=== PATIENT | female | born 1990 | race African-American/Black ===

== ENCOUNTER 2022-07-28 15:22 | Emergency (ER) | payer BC ==
[~2022-07-28 15:22] MED LIST: Iopamidol 370 76% 100 ML VIAL ONE
[2022-07-28] MEDS ORDERED: Ketorolac Tromethamine 30 MG/ML VIAL ONE (16:35)
[2022-07-28 16:53] LABS: Hemoglobin 11.2 g/dL (12.0-16.0); Mean Corpuscular HGB CONC 31.5 g/dL (32.0-36.0); Mean Corpuscular Hemoglobin 28.1 pg (27.0-31.0); Platelet Count 459 10x3/uL (130-400); RBC Distribution Width 14.7 % (11.5-14.5)
[2022-07-28 16:54] LABS: MDiff Complete? YES; Manual Diff?? YES
[2022-07-28 16:58] LABS: CK (CPK) 487 U/L (29-168); CRP (Inflammatory) Less than 0.50 mg/dL (= or < 0.5)
[2022-07-28 17:01] LABS: ALT (SGPT) 18 U/L (8-55); AST (SGOT) 31 U/L (5-34); Albumin 3.9 g/dL (3.5-5.0); Alkaline Phosphatase 56 U/L (40-110); Anion Gap 14 mmol/L (10-20); BUN (Urea Nitrogen) 8 mg/dL (7.0-18.7); Bilirubin, Total 0.3 mg/dL (0.2-1.2); Calc. Creatinine Clearance 0 mL/min (70-130); Carbon Dioxide 24 mmol/L (22-29); Chloride 104 mmol/L (98-107); Estimated GFR 93; Glucose 86 mg/dL (70-105); Lipase 20 U/L (8-78); Potassium 3.7 mmol/L (3.5-5.1); Protein, Total 7.9 g/dL (6.0-8.3); Sodium 138 mmol/L (136-145)
[2022-07-28 17:07] LABS: Eosinophils 3 % (0-10); Lymphocytes 43 % (21-51); Monocytes 3 % (0-10); Neutrophil 44 % (42-75); Reactive Lymphocytes 6 % (0-10)
[2022-07-28 17:08] LABS: Stomatocytes SLIGHT = 2-5 cells (100X) (0-1/hpf)
[2022-07-28 17:09] LABS: Target Cells SLIGHT = 2-5 cells (100X) (0-1/hpf)
[2022-07-28 17:10] LABS: Large Platelets SLIGHT
[2022-07-28 17:11] LABS: Anisocytosis SLIGHT = 6-15 cells (100X) (0-5/hpf); Platelet Morphology Comment Appears Increased
[2022-07-28 17:13] LABS: BHCG - Serum Negative (NEGATIVE); Pregs Control Bar Appear? YES (CONTROL BAR)
[2022-07-28 17:31] LABS: Bilirubin Negative (Negative); Blood, Urine Negative (Negative); Clarity Clear (Clear); Glucose, Urine (Dipstick) Negative (Negative); Ketone, Urine Negative (Negative); Leukocyte Negative (Negative); Nitrite Negative (Negative); Protein, Urine (Dipstick) Negative (Neg-Trace); Specific Gravity, Urine 1.015 (1.005-1.030); Urobilinogen 0.2 mg/dL (Less than 2)
== END 2022-07-28 19:18 | disposition home or self-care (01) ==
LOC: NAV ERS 15:22
DX: R10.9 Unspecified abdominal pain (principal)
CPT/HCPCS: 36415; 74177; 80053; 81003; 82550; 83690; 84703; 85025; 86140; 96374; J1885; Q9967